=== PATIENT | male | born 2000 | race Caucasian/White ===

== ENCOUNTER 2022-11-10 15:53 | Emergency (ER) | payer OTHER, SELFPAY ==
--- NOTE | ~2022-11-10 | XR_ITS ---
EXAMINATION: XR ANKLE, RIGHT CLINICAL INFORMATION: Status post injury. COMPARISON: No similar priors. TECHNIQUE: AP, lateral, and mortise views of the right ankle. FINDINGS: No fracture or malalignment. Circumferential soft tissue thickening in the ankle that is slightly greater adjacent to the lateral malleolus. No unexpected radiopaque foreign bodies. XR/XR ankle RT min 3V IMPRESSION: 1. No acute fracture or malalignment. 2. Soft tissue thickening, more prominent adjacent to the lateral malleolus.
[2022-11-10 17:31] VITALS: BP 145/76; PULSE 83; RESP 18; TEMP 36.2; O2SAT 98; BMI 41.3
--- NOTE | 2022-11-10 17:31 | ED.LOWEXIN ---
HPI - Extremity Injury (Lower) General Chief Complaint: Extremity Injury, Lower Stated Complaint: right ankle injury Time Seen by Provider: 11/10/22 18:35 Source: patient Mode of arrival: ambulatory Limitations: no limitations History of Present Illness HPI Narrative: 22 yo male presents to the ER for evaluation of a right ankle sprain that occurred yesterday while at the at the [facility]. He states he twisted it while jumping. He states it swelled up right away and he was unable to walk on it initially. Swelling and pain are better today. 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 complaint: ankle injury Onset (ago): day(s) (1) Injury: Right: ankle Type of Injury: inversion Place: other ([facility]) Severity: mild Severity scale (1-10): 4 Relieving factors: immobilization and rest Exacerbating factors: weight bearing and palpation Context: jumping Associated symptoms: ambulatory Other symptoms: none Related Data Allergies Allergy/AdvReac Type Severity Reaction Status Date / Time No Known Allergies Allergy Verified 11/10/22 17:31 Review of Systems Review of Systems: Yes all other systems are reviewed and are negative Physical Exam Vital Signs: Vital Signs: Last Vital Signs Temp 97.1 F 11/10/22 17:31 Pulse 83 11/10/22 17:31 Resp 18 11/10/22 17:31 BP 145/76 H 11/10/22 17:31 Pulse Ox 98 11/10/22 17:31 O2 Del Method Room Air 11/10/22 17:31 BMI result Body Mass Index 41.3 Appearance: Alert. Oriented X3. No acute distress. HEENT: normal inspection CVS: Normal heart rate and rhythm. Pulses normal. Respiratory: No respiratory distress. Skin: Skin warm and dry. Normal skin color. Normal skin turgor. No rashes. Extremities: mild swelling and tenderness of the lateral malleolus. normal ROM with pain upon plantarflexion. foot is warm and well perfused. Neuro: Oriented X 3. No motor deficit. No sensory deficit. Steady gait Course Course Course Narrative: RME - 22 yo male presents to the ER for evaluation of right ankle pain and swelling s/p injury at the [facility] yesterday. He states initially he was unable to walk on it and it was very swollen. Swelling improved and he is now ambulatory. XR pending. Medical Decision Making Medical Decision Making [facility] Narrative: 22 yo male presents to the ER for evalution of an ankle sprain. He is ambulatory. XR negative for fracture. discussed results and treatment. given TOYA wrap. Stable for d/c home, RICE therapy discussed. Differential Diagnosis Differential Diagnoses: The differential diagnosis associated with the presentation includes ankle sprain, ankle strain, ankle fracture, contusion Independent Interpretation I performed an independent interpretation of an: Plain X-Ray Interpretation: no fracture appreciated Radiology Impression Discussion of test interpretation with radiology: I have reviewed the radiologist's reading. Radiologist Impression: ?XR/XR ankle RT min 3V IMPRESSION: 1.? No acute fracture or malalignment. 2.? Soft tissue thickening, more prominent adjacent to the lateral malleolus. Prescription Management I considered prescription management with: Pain Medication Critical Care Time Critical Care Time Critical Care Time: No Discharge Plan Discharge Clinical Impression: Ankle sprain and strain Patient Disposition: Home, Self-Care Instructions: Ankle Sprain (DC) Additional Instructions: Your x-ray today was normal. Rest your ankle and elevate your foot when possible. Recommend TOYA wrap for support and compression. Use ice several times per day for the next 48 hours. You may bear weight as tolerated. If pain is too severe, use crutches until better. Take Motrin and/or Tylenol as needed for pain. Follow up with your doctor as needed.
== END 2022-11-10 19:17 | disposition home or self-care (01) ==
LOC: HO.ED 19:10
PROVIDERS: Emergency Provider Emergency Medicine; PCP Pediatrics
DX: S93.401A Sprain of unspecified ligament of right ankle, initial encounter (principal); M25.571 Pain in right ankle and joints of right foot; X58.XXXA Exposure to other specified factors, initial encounter; Y93.9 Activity, unspecified; Y92.9 Unspecified place or not applicable; Y99.9 Unspecified external cause status
CPT/HCPCS: 73610; 99282; 99283